=== PATIENT | male | born 1955 | race Caucasian/White ===

== ENCOUNTER 2023-02-02 13:34 | Emergency (ER) | payer BC, SELFPAY ==
[2023-02-02 13:49] VITALS: BP 121/69; PULSE 78; RESP 20; TEMP 36.2; O2SAT 97; BMI 21.2
--- NOTE | 2023-02-02 14:58 | CRLHL7_ITS ---
For Patients: As a result of the 21st Century Cures Act, medical imaging exams and procedure reports are released immediately into your electronic medical record. You may view this report before your referring provider. If you have questions, please contact your health care provider. INDICATION: Left lower quadrant pain. COMPARISON: None available. TECHNIQUE: CT examination of the abdomen and pelvis was performed with the uneventful intravenous administration of 74 cc of Isovue 370 while 3 mm thick axial sections were obtained from the lung bases through the pubic symphysis. Oral contrast was not administered. Please note that all CT scans at this facility use dose modulation, iterative reconstruction, and/or weight-based dosing when appropriate to reduce radiation dose to as low as reasonably achievable. FINDINGS: There is dudley colitis and proctitis. There is prominent thickening of the mucosa of the sigmoid colon and rectum, with moderate thickening of the mucosa of the rest of the left colon and mild mucosal thickening of the right colon. The etiology of this colitis and proctitis is uncertain. The origins of the visceral vessels are normal, with nothing seen to suggest mesenteric ischemia. In the abdomen, the liver, spleen, pancreas, and adrenals are normal in appearance. There is a small cortical cyst in the lower pole of the right kidney. The kidneys are otherwise normal in appearance. The gallbladder is normal in appearance. The abdominal aorta is normal in caliber with no sign of dilatation. There is no sign of retroperitoneal mass or adenopathy. Macro small-bowel In the pelvis, the appendix is nonvisualized, but there is no sign of an inflammatory process in the area of the appendix. The loops of small bowel in the pelvis are normal in appearance. The prostate is normal in appearance. The urinary bladder is normal in appearance. There is no sign of pelvic or inguinal mass or adenopathy. There is no sign of free air or free fluid in the abdomen or pelvis. There is a 10 millimeter noncalcified subpleural nodule along the posterior-medial left lower lobe. This can be followed using Fleischner society criteria. The rest of the lower chest is clear. The osseous structures are normal in appearance for the patient`s age. IMPRESSION: Prominent distal colitis and proctitis, becoming less moderate in the left colon and mild in the right colon. Etiology of the colitis and proctitis is uncertain. CT of the abdomen shows no additional abnormality. CT of the pelvis shows no additional abnormality. 10 millimeter noncalcified subpleural nodule in the posterior medial left lower lobe which can be followed using Jeannine society criteria. FLEISCHNER SOCIETY GUIDELINES - SOLID NODULES: SINGLE LOW RISK - nodule less than 6 mm: No routine follow-up. - nodule 6-8 mm: CT at 6-12 months, then consider CT at 18-24 months. - nodule greater than 8 mm: Consider CT at 3 months, PET/CT or tissue sampling. SINGLE HIGH RISK - nodule less than 6 mm: Optional CT at 12 months. - nodule 6-8 mm: CT at 6-12 months, then CT at 18-24 months. - nodule greater than 8 mm: Consider CT at 3 months, PET/CT or tissue sampling. MULTIPLE LOW RISK - nodule less than 6 mm: No routine follow-up. - nodule 6-8 mm: CT at 3-6 months, then consider CT at 18-24 months. - nodule greater than 8 mm: CT at 3-6 months, then consider CT at 18-24 months. MULTIPLE HIGH RISK - nodule less than 6 mm: Optional CT at 12 months. - nodule 6-8 mm: CT at 3-6 months, then at 18-24 months. - nodule greater than 8 mm: CT at 3-6 months, then at 18-24 months. Please note that all CT scans at this facility use dose modulation, iterative reconstruction, and/or weight-based dosing when appropriate to reduce radiation dose to as low as reasonably achievable. Dictated by Stevan Shanks MD @ 02/02/2023 6:13:16 PM (Electronically Signed)
--- NOTE | 2023-02-02 15:08 | ED_ITS ---
HPI - General Adult General Chief complaint: Abdominal Pain <Amada Cisneros MD - Last Filed: 02/02/23 16:18> Stated complaint: ulcer, abdominal pain <Amada Cisneros MD - Last Filed: 02/02/23 16:18> Time Seen by Provider: 02/02/23 14:51 <Amada Cisneros MD - Last Filed: 02/02/23 16:18> Source: patient <Amada Cisneros MD - Last Filed: 02/02/23 16:18> Mode of arrival: ambulatory <Amada Cisneros MD - Last Filed: 02/02/23 16:18> Limitations: no limitations <Amada Cisneros MD - Last Filed: 02/02/23 16:18> History of Present Illness HPI narrative: 67-year-old male presenting with abdominal pain going on for 6 days. Pain is located everywhere. Nothing seems to make it better or worse. His appetite is significantly decreasing does not feel like eating anything. He feels nauseated frequently and dry heaves on and off. He states that he has been feeling constipated so he started taking Pepto-Bismol yesterday and had a small stool output today that was dark. He denies any urinary symptoms like frequency, urgency or dysuria. He is not having any diarrhea. He states this has happened to him in the past and it takes about 3 weeks for his abdomen to get better. He was seen by his primary care provider recently and diagnosed with an ulcer and placed on Carafate. He took it yesterday and today and has not helped him at all. He denies any fevers or chills. Abdominal surgeries includes an appendectomy. He gets regular colonoscopies and he has had polyps in the past but no other irregularities that he is aware of. <Amada Cisneros MD - Last Filed: 02/02/23 16:18> Related Data Home medications: Home Medications Medication Instructions Recorded Confirmed atenolol 50 mg tablet 50 mg PO DAILY 02/02/23 02/02/23 atorvastatin 80 mg tablet 80 mg PO DAILY 02/02/23 02/02/23 azelastine 137 mcg (0.1 %) nasal 1 spray intranasal BID 02/02/23 02/02/23 spray aerosol budesonide 0.5 mg/2 mL suspension 0.5 mg DAILY 02/02/23 for nebulization escitalopram oxalate 20 mg tablet 20 mg PO DAILY 02/02/23 02/02/23 hydrochlorothiazide 25 mg tablet 25 mg PO DAILY 02/02/23 02/02/23 lorazepam 1 mg tablet 1 mg PO DAILY PRN anxiety 02/02/23 02/02/23 pantoprazole 40 mg tablet,delayed 40 mg PO DAILY 02/02/23 02/02/23 release sucralfate 1 gram tablet 1 g PO QID 02/02/23 02/02/23 tamsulosin 0.4 mg capsule 0.4 mg PO DAILY 02/02/23 02/02/23 trazodone 50 mg tablet 50 mg PO QPM 02/02/23 02/02/23 Previous Rx's Medication Instructions Recorded methylprednisolone 4 mg tablets in See Rx Instructions PO .COMPLEX 02/02/23 a dose pack (Medrol (Gibran)) #21 ea metronidazole 500 mg tablet 500 mg PO BID 7 days #14 tabs 02/02/23 pantoprazole 20 mg tablet,delayed 20 mg PO DAILY #30 tabs 02/02/23 release (Protonix) <Amada Cisneros MD - Last Filed: 02/02/23 16:18> Allergies/adverse reactions: Allergies Allergy/AdvReac Type Severity Reaction Status Date / Time No Known Drug Allergies Allergy Verified 02/02/23 13:56 <Amada Cisneros MD - Last Filed: 02/02/23 16:18> Review of Systems Status of ROS: Reports: 10 or more systems reviewed and unremarkable except as noted in History and below <Amada Cisneros MD - Last Filed: 02/02/23 16:18> [facility] Social History: Social History Smoking Status: Current every day smoker <Amada Cisneros MD - Last Filed: 02/02/23 16:18> Exam Narrative: Exam Narrative: Well-nourished well-developed patient in no acute distress. Alert and oriented. Answers questions appropriately. Affect is slightly flat. Thoughts are goal oriented and rational. No tangential or magical thinking noted. Patient speaks in full sentences without needing to catch his breath. HEENT: Normocephalic atraumatic. Pupils are equally round reactive to light. Extraocular muscles are intact. Conjunctivae are moist without any icterus noted. Dry mucous membranes. Posterior pharynx is normal. Neck is soft without any lymphadenopathy or thyromegaly. No masses are appreciated. Cardiovascular: Heart is regular rate and rhythm S1 and S2 are present without any murmurs. Lungs: Clear to auscultation bilaterally no wheezes rhonchi or rales are appreciated. Patient takes deep breaths without any discomfort. Abdomen: Soft and nondistended with normal bowel sounds. No guarding or rebound. No masses or organomegaly appreciated. He does have left lower quadrant tenderness. Extremities: Bilateral lower extremities are without edema. Normal DP and PT pulses. Skin: Well perfused without any obvious rashes. <Amada Cisneros MD - Last Filed: 02/02/23 16:18> Const: Vital Signs, click to edit/add: Vital Signs - 24 hr 02/02/23 13:49 02/02/23 16:57 02/02/23 17:01 Temperature 97.1 F L Pulse Rate 87 88 Pulse Rate [Pulse Oximeter] 78 Respiratory Rate 20 Blood Pressure [Ri ght Upper Arm] 121/69 Pulse Oximetry 97 93 92 Oxygen Delivery Me thod Room Air 02/02/23 17:17 02/02/23 17:31 02/02/23 17:48 Temperature Pulse Rate 90 83 88 Pulse Rate [Pulse Oximeter] Respiratory Rate Blood Pressure [Ri ght Upper Arm] Pulse Oximetry 97 95 93 Oxygen Delivery Me thod <Amada Cisneros MD - Last Filed: 02/02/23 16:18> Vital Signs, click to edit/add: Vital Signs - 24 hr 02/02/23 13:49 02/02/23 16:57 02/02/23 17:01 Temperature 97.1 F L Pulse Rate 87 88 Pulse Rate [Pulse Oximeter] 78 Respiratory Rate 20 Blood Pressure [Ri ght Upper Arm] 121/69 Pulse Oximetry 97 93 92 Oxygen Delivery Me thod Room Air 02/02/23 17:17 02/02/23 17:31 02/02/23 17:48 Temperature Pulse Rate 90 83 88 Pulse Rate [Pulse Oximeter] Respiratory Rate Blood Pressure [Ri ght Upper Arm] Pulse Oximetry 97 95 93 Oxygen Delivery Me thod <Arias Rhodes MD - Last Filed: 02/02/23 18:39> Course Course Hospital Course: IV established and fluids started. Differential diagnosis at this time includes colitis, diverticulitis, renal stone, small-bowel obstruction. Less likely diagnoses including mesenteric ischemia, bowel perforation or volvulus. CBC and lactate are within normal limits. Care will be transferred to oncoming physician. <Amada Cisneros MD - Last Filed: 02/02/23 16:18> Vital Signs Vital signs: Initial Vital Signs Temperature 97.1 F L 02/02/23 13:49 Temperature Source Temporal Artery Scan 02/02/23 13:49 Pulse Rate 78 02/02/23 13:49 Pulse Rhythm Regular 02/02/23 13:49 Pulse Strength 3+ Normal 02/02/23 13:49 Respiratory Rate 20 02/02/23 13:49 Blood Pressure 121/69 02/02/23 13:49 Blood Pressure Mean 86 02/02/23 13:49 Blood Pressure Position Sitting 02/02/23 13:49 Pulse Oximetry 97 02/02/23 13:49 Oxygen Delivery Method Room Air 02/02/23 13:49 Vital Signs Temperature 97.1 F L 02/02/23 13:49 Pulse Rate 78 02/02/23 13:49 Respiratory Rate 20 02/02/23 13:49 Blood Pressure 121/69 02/02/23 13:49 Pulse Oximetry 97 02/02/23 13:49 Oxygen Delivery Method Room Air 02/02/23 13:49 Temperature 97.1 F L 02/02/23 13:49 Pulse Rate 88 02/02/23 17:48 Respiratory Rate 20 02/02/23 13:49 Blood Pressure 121/69 02/02/23 13:49 Pulse Oximetry 93 02/02/23 17:48 Oxygen Delivery Method Room Air 02/02/23 13:49 <Amada Cisneros MD - Last Filed: 02/02/23 16:18> Initial Vital Signs Temperature 97.1 F L 02/02/23 13:49 Temperature Source Temporal Artery Scan 02/02/23 13:49 Pulse Rate 78 02/02/23 13:49 Pulse Rhythm Regular 02/02/23 13:49 Pulse Strength 3+ Normal 02/02/23 13:49 Respiratory Rate 20 02/02/23 13:49 Blood Pressure 121/69 02/02/23 13:49 Blood Pressure Mean 86 02/02/23 13:49 Blood Pressure Position Sitting 02/02/23 13:49 Pulse Oximetry 97 02/02/23 13:49 Oxygen Delivery Method Room Air 02/02/23 13:49 Vital Signs Temperature 97.1 F L 02/02/23 13:49 Pulse Rate 78 02/02/23 13:49 Respiratory Rate 20 02/02/23 13:49 Blood Pressure 121/69 02/02/23 13:49 Pulse Oximetry 97 02/02/23 13:49 Oxygen Delivery Method Room Air 02/02/23 13:49 Temperature 97.1 F L 02/02/23 13:49 Pulse Rate 88 02/02/23 17:48 Respiratory Rate 20 02/02/23 13:49 Blood Pressure 121/69 02/02/23 13:49 Pulse Oximetry 93 02/02/23 17:48 Oxygen Delivery Method Room Air 02/02/23 13:49 <Arias Rhodes MD - Last Filed: 02/02/23 18:39> Medical Decision Making MDM Narrative Medical decision making narrative: This patient comes in with diffuse abdominal pain over the past week. Care for this patient was transferred to [place] at the end of Dr. Cisneros's shift. Lab results returned with potassium at 2.5. The patient did receive a dose of potassium here. Other lab results are reassuring. CT imaging of the abdomen and pelvis returns with diffuse colitis and proctitis. There are no other significant findings to explain the patient's symptoms. He has had symptoms like this similarly about 5 years ago and did see a GI specialist. He states that they did not find any particular cause for those symptoms which resolved after about 3 weeks. He states that he has been getting colonoscopies as scheduled and his last 1 was about 2 years ago with normal results. The patient received an IV dose of dexamethasone 10 mg here. I did prescribe Flagyl twice daily for 7 days and Medrol Dosepak. He also received a prescription for Protonix in addition to an IV dose that he received here. I advised him to follow-up with his primary physician or better yet to reconnect with a GI specialist regarding these symptoms. <Arias Rhodes MD - Last Filed: 02/02/23 18:39> Lab Data Labs: Lab Results 02/02/23 02/02/23 Range/Units 14:59 15:22 WBC 8.97 (4.50-11.00) K/uL RBC 4.17 L (4.30-5.90) m/uL Hgb 13.5 (13.5-17.5) gm/dL Hct 37.9 (37.0-53.0) % MCV 91 (80-100) fL MCH 32 (26-34) pg MCHC 36 (32-36) gm/dL RDW Coeff of Tanja 11.6 (11.5-15.5) % Plt Count 272 (140-440) K/uL Neut % (Auto) 75.5 H (42.0-72.0) % Lymph % (Auto) 9.9 L (20-44) % [place] % (Auto) 13.3 H (0.0-11.0) % Eos % (Auto) 0.8 (0.0-7.0) % Baso % (Auto) 0.3 (0.0-3.0) % Neut # (Auto) 6.80 (1.7-7.0) K/uL Lymph # (Auto) 0.90 (0.90-2.90) K/uL [place] # (Auto) 1.20 H (0.00-0.90) K/UL Eos # (Auto) 0.07 (0.00-0.50) K/uL Baso # (Auto) 0.03 (0.00-0.30) K/uL Abs Immat Gran (auto) 0.02 (0.00-0.30) K/uL Imm/Tot Granulo (auto) 0.2 % Sodium 132 L (135-149) mmol/L Potassium 2.5 L* (3.6-5.1) mmol/L Chloride 94 L (96-114) mmol/L Carbon Dioxide 32 (20-32) mmol/L BUN 12 (7-30) mg/dL Creatinine 0.6 (0.5-1.5) mg/dL Estimated Creat Clear 71.82 Estimated GFR 107 ml/min Glucose 114 (60-115) mg/dL Lactate 1.3 (0.5-1.9) mmol/L Calcium 8.5 (8.4-10.6) mg/dL Total Bilirubin 0.5 (0.1-1.5) mg/dL Direct Bilirubin 0.1 (0.0-0.5) mg/dL AST 31 (12-35) U/L ALT 18 (4-50) U/L Alkaline Phosphatase 101 (40-150) U/L C-Reactive Protein 4.6 H (0.5-1.0) mg/dL Total Protein 6.7 (6.0-8.3) g/dL Albumin 3.3 (3.3-5.0) g/dL Lipase 80 (23-300) U/L Urine Color Yellow (Yellow) Urine Appearance Clear (Clear) Urine pH 8.5 (5.0-8.5) Ur Specific [place] 1.020 (1.000-1.030) Urine Protein 1+ A (Negative) Urine Glucose (UA) Negative (Negative) Urine Ketones 2+ A (Negative) Urine Blood Negative (Negative) Urine Nitrite Negative (Negative) Urine Bilirubin 1+ A (Negative) Urine Urobilinogen 0.2 (0.2-1.0) Ur Leukocyte Esterase Negative (Negative) Urine RBC 0-2 (0-2) Urine WBC 0-2 (0-5) Ur Squamous Epith Cells None (None-Few) Urine Bacteria None (None) <Amada Cisneros MD - Last Filed: 02/02/23 16:18> Lab Results 02/02/23 02/02/23 Range/Units 14:59 15:22 WBC 8.97 (4.50-11.00) K/uL RBC 4.17 L (4.30-5.90) m/uL Hgb 13.5 (13.5-17.5) gm/dL Hct 37.9 (37.0-53.0) % MCV 91 (80-100) fL MCH 32 (26-34) pg MCHC 36 (32-36) gm/dL RDW Coeff of Tanja 11.6 (11.5-15.5) % Plt Count 272 (140-440) K/uL Neut % (Auto) 75.5 H (42.0-72.0) % Lymph % (Auto) 9.9 L (20-44) % [place] % (Auto) 13.3 H (0.0-11.0) % Eos % (Auto) 0.8 (0.0-7.0) % Baso % (Auto) 0.3 (0.0-3.0) % Neut # (Auto) 6.80 (1.7-7.0) K/uL Lymph # (Auto) 0.90 (0.90-2.90) K/uL [place] # (Auto) 1.20 H (0.00-0.90) K/UL Eos # (Auto) 0.07 (0.00-0.50) K/uL Baso # (Auto) 0.03 (0.00-0.30) K/uL Abs Immat Gran (auto) 0.02 (0.00-0.30) K/uL Imm/Tot Granulo (auto) 0.2 % Sodium 132 L (135-149) mmol/L Potassium 2.5 L* (3.6-5.1) mmol/L Chloride 94 L (96-114) mmol/L Carbon Dioxide 32 (20-32) mmol/L BUN 12 (7-30) mg/dL Creatinine 0.6 (0.5-1.5) mg/dL Estimated Creat Clear 71.82 Estimated GFR 107 ml/min Glucose 114 (60-115) mg/dL Lactate 1.3 (0.5-1.9) mmol/L Calcium 8.5 (8.4-10.6) mg/dL Total Bilirubin 0.5 (0.1-1.5) mg/dL Direct Bilirubin 0.1 (0.0-0.5) mg/dL AST 31 (12-35) U/L ALT 18 (4-50) U/L Alkaline Phosphatase 101 (40-150) U/L C-Reactive Protein 4.6 H (0.5-1.0) mg/dL Total Protein 6.7 (6.0-8.3) g/dL Albumin 3.3 (3.3-5.0) g/dL Lipase 80 (23-300) U/L Urine Color Yellow (Yellow) Urine Appearance Clear (Clear) Urine pH 8.5 (5.0-8.5) Ur Specific [place] 1.020 (1.000-1.030) Urine Protein 1+ A (Negative) Urine Glucose (UA) Negative (Negative) Urine Ketones 2+ A (Negative) Urine Blood Negative (Negative) Urine Nitrite Negative (Negative) Urine Bilirubin 1+ A (Negative) Urine Urobilinogen 0.2 (0.2-1.0) Ur Leukocyte Esterase Negative (Negative) Urine RBC 0-2 (0-2) Urine WBC 0-2 (0-5) Ur Squamous Epith Cells None (None-Few) Urine Bacteria None (None) <Arias Rhodes MD - Last Filed: 02/02/23 18:39> Imaging Data CT scan - abdomen: Radiologist's impression: Prominent distal colitis and proctitis, becoming less moderate in the left colon and mild in the right colon. Etiology of the colitis and proctitis is uncertain. CT of the abdomen shows no additional abnormality. CT of the pelvis shows no additional abnormality. 10 millimeter noncalcified subpleural nodule in the posterior medial left lower lobe which can be followed using Jeannine society criteria. <Arias Rhodes MD - Last Filed: 02/02/23 18:39> Discharge Plan Discharge Clinical Impression: Colitis <Amada Cisneros MD - Last Filed: 02/02/23 16:18> Patient Disposition: Home, Self-Care <Amada Cisneros MD - Last Filed: 02/02/23 16:18> Condition: Stable <Amada Cisneros MD - Last Filed: 02/02/23 16:18> Additional Instructions: Take medications as prescribed. Follow up with primary physician or with Gastroenterology. Return if symptoms are worsening. <Amada Cisneros MD - Last Filed: 02/02/23 16:18> Prescriptions: New metronidazole 500 mg tablet 500 mg PO BID 7 Days Qty: 14 0RF pantoprazole [Protonix] 20 mg tablet,delayed release (DR/EC) 20 mg PO DAILY Qty: 30 2RF methylprednisolone [Medrol (Gibran)] 4 mg tablets,dose pack See Rx Instructions .ROUTE .COMPLEX Qty: 21 0RF Rx Instructions: orally per package directions No Action atorvastatin 80 mg tablet 80 mg PO DAILY trazodone 50 mg tablet 50 mg PO QPM sucralfate 1 gram tablet 1 g PO QID tamsulosin 0.4 mg capsule 0.4 mg PO DAILY pantoprazole 40 mg tablet,delayed release (DR/EC) 40 mg PO DAILY budesonide 0.5 mg/2 mL suspension for nebulization 0.5 mg DAILY hydrochlorothiazide 25 mg tablet 25 mg PO DAILY lorazepam 1 mg tablet 1 mg PO DAILY PRN (Reason: anxiety) azelastine 137 mcg (0.1 %) aerosol,spray 1 spray INTRANASAL BID atenolol 50 mg tablet 50 mg PO DAILY escitalopram oxalate 20 mg tablet 20 mg PO DAILY <Amada Cisneros MD - Last Filed: 02/02/23 16:18> Follow Up/Referrals: Mayda Betancourt, [employer]GER, [employer] [Primary Care Provider] - <Amada Cisneros MD - Last Filed: 02/02/23 16:18> Stand Alone Forms: [employer] Info Instructions <Amada Cisneros MD - Last Filed: 02/02/23 16:18>
[2023-02-02] MEDS: ONDANSETRON 2 MG/ML inj 4 MG IVP (15:25)
[2023-02-02] MEDS: 0.9 % SODIUM CHLORIDE 1000 ml 1,000 ML IV (15:25)
[2023-02-02 15:31] LABS: Basophils Absolute Auto 0.03 K/uL (0.00-0.30); Basophils Percent Auto 0.3 % (0.0-3.0); Eosinophils Absolute Auto 0.07 K/uL (0.00-0.50); Eosinophils Percent Auto 0.8 % (0.0-7.0); Hematocrit 37.9 % (37.0-53.0); Hemoglobin* 13.5 gm/dL (13.5-17.5); Immature Granulocytes Abs Auto 0.02 K/uL (0.00-0.30); Immature Granulocytes Pct Auto 0.2 %; Lactate* 1.3 mmol/L (0.5-1.9); Lymphocytes Percent Auto 9.9 % (20-44); Mean Corpuscular HGB Conc 36 gm/dL (32-36); Mean Corpuscular Hemoglobin 32 pg (26-34); Mean Corpuscular Volume 91 fL (80-100); Monocytes Percent Auto 13.3 % (0.0-11.0); Neutrophils Percent Auto 75.5 % (42.0-72.0); Platelet Count* 272 K/uL (140-440); RDW Coefficient of Variation % 11.6 % (11.5-15.5); Red Blood Count 4.17 m/uL (4.30-5.90); White Blood Count* 8.97 K/uL (4.50-11.00)
[2023-02-02 15:33] LABS: Slide Review Reflex No
[2023-02-02 15:50] LABS: Appearance Urine Clear (Clear); Bilirubin Urine 1+ (Negative); Blood Urine Negative (Negative); Color Urine Yellow (Yellow); Glucose Urine Negative (Negative); Ketones Urine 2+ (Negative); Leukocyte Esterase Urine Negative (Negative); Nitrite Urine Negative (Negative); Protein Urine 1+ (Negative); Urobilinogen Urine 0.2 (0.2-1.0); pH Urine 8.5 (5.0-8.5)
[2023-02-02 16:04] LABS: Albumin* 3.3 g/dL (3.3-5.0); Chloride* 94 mmol/L (96-114)
[2023-02-02 16:05] LABS: Sodium* 132 mmol/L (135-149)
[2023-02-02 16:07] LABS: Aspartate Amino Transferase* 31 U/L (12-35); Bilirubin Direct* 0.1 mg/dL (0.0-0.5); Bilirubin Total* 0.5 mg/dL (0.1-1.5); Blood Urea Nitrogen* 12 mg/dL (7-30); Carbon Dioxide* 32 mmol/L (20-32); Creatinine* 0.6 mg/dL (0.5-1.5); Est. Creatinine Clearance* 71.82; Estimated Glomerular Filt Rate 107 ml/min; Total Protein* 6.7 g/dL (6.0-8.3)
[2023-02-02 16:08] LABS: Alanine Aminotransferase* 18 U/L (4-50); Alkaline Phosphatase* 101 U/L (40-150); Calcium* 8.5 mg/dL (8.4-10.6); Glucose* 114 mg/dL (60-115); Lipase* 80 U/L (23-300)
[2023-02-02 16:10] LABS: C Reactive Protein* 4.6 mg/dL (0.5-1.0)
[2023-02-02 16:16] LABS: Potassium* 2.5 mmol/L (3.6-5.1)
[2023-02-02 16:18] LABS: RBC Urine 0-2 (0-2); WBC Urine 0-2 (0-5)
[2023-02-02] MEDS: NICOTINE 21 MG PATCH 1 PATCH TRANSDERMA (16:50)
[2023-02-02] MEDS: POTASSIUM CHLORIDE 10 MEQ CAPSULE ER 40 MEQ PO (16:50)
[2023-02-02 16:57] VITALS: PULSE 87; O2SAT 93
[2023-02-02 17:01] VITALS: PULSE 88; O2SAT 92
[2023-02-02 17:17] VITALS: PULSE 90; O2SAT 97
[2023-02-02 17:31] VITALS: PULSE 83; O2SAT 95
[2023-02-02] MEDS: PANTOPRAZOLE SODIUM 40 MG INJ IVP (17:35)
[2023-02-02 17:48] VITALS: PULSE 88; O2SAT 93
== END 2023-02-02 19:12 | disposition home or self-care (01) ==
PROVIDERS: Emergency Provider Family Medicine; PCP Nurse Practitioner Family
DX: K52.9 Noninfective gastroenteritis and colitis, unspecified (principal)
CPT/HCPCS: 36415; 74177; 80048; 80076; 81001; 83605; 83690; 84484; 85025; 86140; 87086; 96374; 96375; 99284; A9270; C9113; J2405; J7030; Q9967; S4990

== ENCOUNTER 2023-02-10 15:46 | Emergency (ER) | payer MEDICARE, SELFPAY ==
[2023-02-10] VITALS (10 sets, daily range): BP systolic 105–169; BP diastolic 65–113; PULSE 65–79; RESP 18; TEMP 36.2; O2SAT 88–100; BMI 20.1
--- NOTE | 2023-02-10 17:13 | ED_ITS ---
HPI - General Adult General Chief complaint: Abdominal Pain Stated complaint: Weakness, abdominal pain, nausea Time Seen by Provider: 02/10/23 16:30 History of Present Illness HPI narrative: This 67-year-old male comes in reporting persistent crampy abdominal pain with nausea and loss of appetite. He was seen in this emergency department about a week ago at which time he had labs and CT imaging. CT report shows a nonspecific colitis. The patient received prescriptions for a steroid, Flagyl, and Zofran. He states that he has taken these medicines without much relief. He does report significant anxiety symptoms and wonders if this can be triggering or amplifying his symptoms. He states that he does take Ativan every night to help him with sleep. He has done this for years. He has also taken Lexapro for anxiety and depression. He states that he is losing weight and not eating because of his symptoms. He does not report any blood in the toilet. He has not had any fevers. He arrives with normal vital signs. Related Data Home Medications Medication Instructions Recorded Confirmed atenolol 50 mg tablet 50 mg PO DAILY 02/02/23 02/02/23 atorvastatin 80 mg tablet 80 mg PO DAILY 02/02/23 02/02/23 azelastine 137 mcg (0.1 %) nasal 1 spray intranasal BID 02/02/23 02/02/23 spray aerosol budesonide 0.5 mg/2 mL suspension 0.5 mg DAILY 02/02/23 for nebulization escitalopram oxalate 20 mg tablet 20 mg PO DAILY 02/02/23 02/02/23 hydrochlorothiazide 25 mg tablet 25 mg PO DAILY 02/02/23 02/02/23 lorazepam 1 mg tablet 1 mg PO DAILY PRN anxiety 02/02/23 02/02/23 pantoprazole 40 mg tablet,delayed 40 mg PO DAILY 02/02/23 02/02/23 release sucralfate 1 gram tablet 1 g PO QID 02/02/23 02/02/23 tamsulosin 0.4 mg capsule 0.4 mg PO DAILY 02/02/23 02/02/23 trazodone 50 mg tablet 50 mg PO QPM 02/02/23 02/02/23 Previous Rx's Medication Instructions Recorded methylprednisolone 4 mg tablets in See Rx Instructions PO .COMPLEX 02/02/23 a dose pack (Medrol (Gibran)) #21 ea metronidazole 500 mg tablet 500 mg PO BID 7 days #14 tabs 02/02/23 pantoprazole 20 mg tablet,delayed 20 mg PO DAILY #30 tabs 02/02/23 release (Protonix) ciprofloxacin HCl 500 mg tablet 500 mg PO BID #14 tabs 02/10/23 (Cipro) hydrocodone 5 mg-acetaminophen 325 1 tab PO Q4-6H PRN pain #15 tabs 02/10/23 mg tablet metoclopramide HCl 10 mg tablet 10 mg PO Q6H PRN nausea and 02/10/23 (Reglan) vomiting #20 tabs Allergies Allergy/AdvReac Type Severity Reaction Status Date / Time No Known Drug Allergies Allergy Verified 02/02/23 13:56 Review of Systems Status of ROS: Reports: 10 or more systems reviewed and unremarkable except as noted in History and below Narrative: Constitutional: No fevers, no weight gain or loss. Eyes: No discharge. No vision changes. HENT: No congestion, no sore throat, no ear pain. Cardiovascular: No chest pain, no palpitations. Respiratory: No shortness of breath, no wheezes, no cough. Gastrointestinal: Abdominal pain that is crampy with nausea symptoms. Genitourinary: No dysuria, no hematuria. Musculoskeletal: Normal range of motion. Skin: No rashes, no pruritis. Neurological: No dizziness, weakness, sensory change, speech change. Endo/Heme/Allergies: No bruising or bleeding. No polydipsia. Pysch: no suicidality, no anxiety, no insomnia. All other systems reviewed and are negative. [facility] Social History Smoking Status: Current every day smoker Exam Narrative: Exam Narrative: Constitutional: Well-developed, well-nourished, no acute distress. HEENT: Normocephalic, atraumatic. Neck: Normal range of motion. Nontender. Supple. Heart: Regular. No murmurs. Normal rate. Intact distal pulses. Lungs: Clear to auscultation. No chest discomfort. No wheezes, rhonchi, or rales. Abdomen: Normal bowel sounds. Mild tenderness. No rebound tenderness. Genitalia: Deferred. Back: No midline tenderness. Normal range of motion. Extremities: Normal range of motion. No injury. Skin: Intact. No rash. Warm. No erythema or pallor. Neurologic: No altered sensation. No weakness. Alert and oriented. Psychiatric: No suicidality. No anxiety or depression. No insomnia. Nursing notes and vitals signs are reviewed. Const: Vital Signs, click to edit/add: Vital Signs - 24 hr 02/10/23 15:56 02/10/23 17:11 02/10/23 17:30 Temperature 97.1 F L Pulse Rate 76 72 Pulse Rate [Pulse Oximeter] 65 Respiratory Rate 18 Blood Pressure Blood Pressure [Ri ght Upper Arm] 120/80 Pulse Oximetry 97 94 96 Oxygen Delivery Me thod Room Air 02/10/23 17:32 02/10/23 18:00 02/10/23 18:02 Temperature Pulse Rate 75 74 79 Pulse Rate [Pulse Oximeter] Respiratory Rate Blood Pressure 149/93 H 169/113 H Blood Pressure [Ri ght Upper Arm] Pulse Oximetry 96 100 99 Oxygen Delivery Me thod Course Vital Signs Vital signs: Initial Vital Signs Temperature 97.1 F L 02/10/23 15:56 Temperature Source Temporal Artery Scan 02/10/23 15:56 Pulse Rate 65 02/10/23 15:56 Pulse Rhythm Regular 02/10/23 15:56 Respiratory Rate 18 02/10/23 15:56 Blood Pressure 120/80 02/10/23 15:56 Blood Pressure Mean 93 02/10/23 15:56 Pulse Oximetry 97 02/10/23 15:56 Oxygen Delivery Method Room Air 02/10/23 15:56 Vital Signs Temperature 97.1 F L 02/10/23 15:56 Pulse Rate 65 02/10/23 15:56 Respiratory Rate 18 02/10/23 15:56 Blood Pressure 120/80 02/10/23 15:56 Pulse Oximetry 97 02/10/23 15:56 Oxygen Delivery Method Room Air 02/10/23 15:56 Temperature 97.1 F L 02/10/23 15:56 Pulse Rate 79 02/10/23 18:02 Respiratory Rate 18 02/10/23 15:56 Blood Pressure 169/113 H 02/10/23 18:02 Pulse Oximetry 99 02/10/23 18:02 Oxygen Delivery Method Room Air 02/10/23 15:56 Medical Decision Making MDM Narrative Medical decision making narrative: This 67-year-old male comes in with persistent abdominal pain and nausea. He h ad symptoms like this several years ago that took about 3 weeks to resolve. During that time he had a consult with the GI specialist and had a workup which did not show any particular cause for his symptoms. Last week he was seen here and had CT imaging of his abdomen and pelvis which showed sign of colitis and proctitis. The patient has taken a course of Medrol Dosepak and Flagyl. He states that these medicines did not help him. He also has been taking Zofran which did not help much with nausea. Today an IV was established where he received a L of D5 half-normal saline. He also received IV doses of Toradol 30 mg, Reglan 10 mg, and later Dilaudid 0.5 mg. Lab results returned with a white count elevated at around 16,000. This may be due to the steroid that he took which she completed a few days ago. He does not have any fevers. His sed rate returns elevated at 52. We do not have a comparison value. Today his C reactive protein returns in a normal range. His potassium has improved from 2.5-3.0. I did speak with the surgeon on-call, Dr. Jones, and reviewed these findings and chief complaints with her. She recommended follow-up with a non categorical preschool teacher. The patient is okay to return home. I did provide prescription for Reglan and some tablets of Weston. He understands that Weston will make him constipated over time. I also provided a prescription for Cipro seeing his elevated white count. He understands that this medicine can disturbed the normal evelyn bacteria in his got and have some adverse effects also. He does have a follow-up appointment with his primary physician in a few days to arrange a referral to a non categorical preschool teacher. Lab Data Labs: Lab Results 02/10/23 Range/Units 17:22 WBC 16.87 H (4.50-11.00) K/uL RBC 4.42 (4.30-5.90) m/uL Hgb 14.1 (13.5-17.5) gm/dL Hct 41.1 (37.0-53.0) % MCV 93 (80-100) fL MCH 32 (26-34) pg MCHC 34 (32-36) gm/dL RDW Coeff of Tanja 12.0 (11.5-15.5) % Plt Count 447 H (140-440) K/uL Neut % (Auto) 80.7 H (42.0-72.0) % Lymph % (Auto) 13.2 L (20-44) % Gage % (Auto) 4.9 (0.0-11.0) % Eos % (Auto) 0.7 (0.0-7.0) % Baso % (Auto) 0.3 (0.0-3.0) % Neut # (Auto) 13.60 H (1.7-7.0) K/uL Lymph # (Auto) 2.20 (0.90-2.90) K/uL Gage # (Auto) 0.80 (0.00-0.90) K/UL Eos # (Auto) 0.10 (0.00-0.50) K/uL Baso # (Auto) 0.10 (0.00-0.30) K/uL Abs Immat Gran (auto) 0.00 (0.00-0.30) K/uL Imm/Tot Granulo (auto) 0.2 % ESR 54 H (2-15) mm/hr Sodium 136 (135-149) mmol/L Potassium 3.0 L (3.6-5.1) mmol/L Chloride 99 (96-114) mmol/L Carbon Dioxide 29 (20-32) mmol/L BUN 14 (7-30) mg/dL Creatinine 0.6 (0.5-1.5) mg/dL Estimated Creat Clear 68.13 Estimated GFR 107 ml/min Glucose 115 (60-115) mg/dL Lactate 0.8 (0.5-1.9) mmol/L Calcium 8.6 (8.4-10.6) mg/dL Total Bilirubin 0.5 (0.1-1.5) mg/dL Direct Bilirubin 0.0 (0.0-0.5) mg/dL AST 43 H (12-35) U/L ALT 27 (4-50) U/L Alkaline Phosphatase 85 (40-150) U/L C-Reactive Protein 0.8 (0.5-1.0) mg/dL Total Protein 6.7 (6.0-8.3) g/dL Albumin 3.5 (3.3-5.0) g/dL Lipase 234 (23-300) U/L Discharge Plan Discharge Clinical Impression: Colitis, Abdominal pain Patient Disposition: Home w/ Parent or Adult Condition: Stable Additional Instructions: Take electrolyte solutions orally to restore potassium. Take medications as needed and directed. Follow up with primary physician and with non categorical preschool teacher. Return if worsening symptoms occur. Prescriptions: New hydrocodone-acetaminophen 5-325 mg tablet 1 tab PO Q4-6H PRN (Reason: pain) Qty: 15 0RF ciprofloxacin HCl [Cipro] 500 mg tablet 500 mg PO BID Qty: 14 0RF metoclopramide HCl [Reglan] 10 mg tablet 10 mg PO Q6H PRN (Reason: nausea and vomiting) Qty: 20 0RF No Action atorvastatin 80 mg tablet 80 mg PO DAILY trazodone 50 mg tablet 50 mg PO QPM sucralfate 1 gram tablet 1 g PO QID tamsulosin 0.4 mg capsule 0.4 mg PO DAILY pantoprazole 40 mg tablet,delayed release (DR/EC) 40 mg PO DAILY budesonide 0.5 mg/2 mL suspension for nebulization 0.5 mg DAILY hydrochlorothiazide 25 mg tablet 25 mg PO DAILY lorazepam 1 mg tablet 1 mg PO DAILY PRN (Reason: anxiety) azelastine 137 mcg (0.1 %) aerosol,spray 1 spray INTRANASAL BID atenolol 50 mg tablet 50 mg PO DAILY escitalopram oxalate 20 mg tablet 20 mg PO DAILY metronidazole 500 mg tablet 500 mg PO BID 7 Days Qty: 14 0RF pantoprazole [Protonix] 20 mg tablet,delayed release (DR/EC) 20 mg PO DAILY Qty: 30 2RF methylprednisolone [Medrol (Gibran)] 4 mg tablets,dose pack See Rx Instructions .ROUTE .COMPLEX Qty: 21 0RF Rx Instructions: orally per package directions Follow Up/Referrals: Mayda Betancourt, TED, [facility] OF [facility] [Primary Care Provider] - Stand Alone Forms: [employer] Info Instructions
[2023-02-10 17:37] LABS: Basophils Percent Auto 0.3 % (0.0-3.0); Eosinophils Percent Auto 0.7 % (0.0-7.0); Hematocrit 41.1 % (37.0-53.0); Hemoglobin* 14.1 gm/dL (13.5-17.5); Immature Granulocytes Pct Auto 0.2 %; Lymphocytes Percent Auto 13.2 % (20-44); Mean Corpuscular HGB Conc 34 gm/dL (32-36); Mean Corpuscular Hemoglobin 32 pg (26-34); Mean Corpuscular Volume 93 fL (80-100); Monocytes Percent Auto 4.9 % (0.0-11.0); Neutrophils Percent Auto 80.7 % (42.0-72.0); Platelet Count* 447 K/uL (140-440); Red Blood Count 4.42 m/uL (4.30-5.90); White Blood Count* 16.87 K/uL (4.50-11.00)
[2023-02-10 17:40] LABS: Lactate* 0.8 mmol/L (0.5-1.9)
[2023-02-10 17:41] LABS: Slide Review Reflex No
[2023-02-10] MEDS: KETOROLAC 30 MG/ML inj IVP (17:48)
[2023-02-10] MEDS: 5 % DEXTROSE/0.45% SOD CHLOR 1,000 ML 1000 ML IV (17:48)
[2023-02-10 17:55] LABS: Albumin* 3.5 g/dL (3.3-5.0)
[2023-02-10 17:56] LABS: Chloride* 99 mmol/L (96-114); Sodium* 136 mmol/L (135-149)
[2023-02-10 17:58] LABS: Aspartate Amino Transferase* 43 U/L (12-35); Bilirubin Total* 0.5 mg/dL (0.1-1.5); Total Protein* 6.7 g/dL (6.0-8.3)
[2023-02-10 17:59] LABS: Alanine Aminotransferase* 27 U/L (4-50); Alkaline Phosphatase* 85 U/L (40-150); Creatinine* 0.6 mg/dL (0.5-1.5); Est. Creatinine Clearance* 68.13; Estimated Glomerular Filt Rate 107 ml/min; Lipase* 234 U/L (23-300)
[2023-02-10 18:00] LABS: Blood Urea Nitrogen* 14 mg/dL (7-30); Calcium* 8.6 mg/dL (8.4-10.6); Carbon Dioxide* 29 mmol/L (20-32); Glucose* 115 mg/dL (60-115)
[2023-02-10 18:03] LABS: C Reactive Protein* 0.8 mg/dL (0.5-1.0)
[2023-02-10] MEDS: LORazepam 2 MG/ML inj 1 MG IV (18:06)
[2023-02-10] MEDS: METOCLOPRAMIDE HCL 5 MG/ML INJ 10 MG IV (18:07)
[2023-02-10 18:30] LABS: Erythrocyte SedimentationRate* 54 mm/hr (2-15)
[2023-02-10] MEDS: HYDROmorphone 0.5 mg/0.5 ml inj IVP (18:46)
== END 2023-02-10 19:36 | disposition home or self-care (01) ==
PROVIDERS: Emergency Provider Emergency Medicine Emergency Medical Services; PCP Nurse Practitioner Family
DX: K52.9 Noninfective gastroenteritis and colitis, unspecified (principal); R10.9 Unspecified abdominal pain
CPT/HCPCS: 36415; 80048; 80076; 83605; 83690; 85025; 85651; 86140; 96361; 96374; 96375; 99284; J1170; J1885; J2060; J2765; S5010